=== PATIENT | male | born 1940 ===

== ENCOUNTER → 2018-04-18 10:58 | Outpatient (CLI) | payer MEDICARE, SELFPAY ==
[2018-04-18 12:19] LABS: Add Manual Diff / Slide Review NO; Basophils Percent Auto 0.7 % (0-2); Eosinophils Percent Auto 3.9 % (2-4); Hematocrit 44.3 % (41-53); Lymphocytes Percent Auto 23.8 % (25-40); Mean Corpuscular HGB Conc 33.8 % (30-36); Mean Corpuscular Hemoglobin 31.2 PG (26-34); Mean Corpuscular Volume 92.4 fL (80-100); Monocytes Percent Auto 10.7 % (3-14); Neutrophils Absolute Auto 4800 /uL (3000-5900); Neutrophils Percent Auto 60.9 % (50-75); Platelet Count 235 X10^3/uL (150-400); Red Blood Cell Count 4.79 X10^6/uL (4.5-5.9); Red Cell Distribution Width 13.4 % (11.6-14.8); White Blood Cell Count 7.8 X10^3/uL (4.5-11.0)
[2018-04-18 12:52] LABS: HEMOLYSIS < 15 (0-50); Potassium 4.6 mmol/L (3.4-5.1); Sodium 143 mmol/L (137-145)
== END ==
PROVIDERS: PCP Family Medicine; Visit Provider Orthopaedic Surgery
DX: M16.12 Unilateral primary osteoarthritis, left hip (principal); Z01.818 Encounter for other preprocedural examination; Z01.812 Encounter for preprocedural laboratory examination
CPT/HCPCS: 36415; 80051; 85025; 93005

== ENCOUNTER 2018-05-01 09:38 | Inpatient (IN) | payer MEDICARE, SELFPAY ==
[2018-04-10 11:01] VITALS: BMI 25.7
[2018-05-01] VITALS (16 sets, daily range): BP systolic 113–161; BP diastolic 57–98; PULSE 74–100; RESP 14–22; TEMP 36.3–37.4; O2SAT 92–98; BMI 25.7
--- NOTE | 2018-05-01 | DI.RAD.S_ITS ---
PROCEDURE: XR HIP LT 1V INDICATIONS: 77 year-old male with left hip joint replacement. TECHNIQUE: One view of the lower pelvis acquired. COMPARISON: [facility] [place], XR PELVIS WITH LATERAL HIP LEFT, 03/15/2018, 11:37. FINDINGS: Bones: Patient is status post noncemented left hip arthroplasty, with hardware components in expected positions. The hip joint appears congruent. The visualized bony structures appear intact. Soft tissues: Overlying postoperative changes are noted, including skin darwin. No suspicious soft tissue densities. IMPRESSION: Status post left hip arthroplasty, with hardware components in expected positions. Dictated by: Michael Manrique M.D. on 05/01/2018 at 15:09 Approved by: Michael Manrique M.D. on 05/01/2018 at 15:11
[2018-05-01 10:20] LABS: INR 1.1 (0.9-1.3); Prothrombin Time 11.6 SECONDS (10.1-12.7)
[2018-05-01] MEDS: LACTATED RINGERS 1,000 ML 42 ML IV ×2 (11:55→13:57)
--- NOTE | 2018-05-01 11:59 | PM.PREOP ---
Pre-operative Note Interval Note Pre-op Check: History & Physical Reviewed by Physician and Changes
[2018-05-01] MEDS: CEFAZOLIN 2 GM/100 ML FROZ.PIGGY IV ×2 (12:30→22:25)
--- NOTE | 2018-05-01 12:42 | SUR.OPER ---
Lateral on padded OR bed. Gel axillary roll. Arms secured on padded armboard with pillow supporting top arm. Padded hip positioner braces x4 - anterior and posterior chest and pelvis. Additional gel pad used anterior pelvis. Gel pad under bottom leg from knee to foot and secured with tape over sheet.
--- NOTE | 2018-05-01 14:51 | PM.OP.1 ---
Operative Date/Time/Diagnoses - Date of procedure: 05/01/18 Time of procedure: 14:51 Pre-op diagnosis: Left hip degenerative joint disease Post-op diagnosis: same Procedure & Clinicians Procedure: Left total hip arthroplasty (CPT code 76197 with assistant clinical director) Same procedure as scheduled: Yes Indications: Patient is an 77-year-old male with severe left hip DJD. The patient has pain with activities and at rest, limited ambulation and activity tolerance, difficulties with ADLs, and failure of conservative treatment. We have discussed the nature of condition, treatment options, risks and benefits, and patient elects to proceed with total hip arthroplasty and gives informed consent. Surgeon: Javan Medeiros Nurse First Aid: Angie Lloyd Anesthesia Type: General and Spinal Operative Notes Closure Type: primary Implants & Drains: Acetabulum: Watts [employer]hew R3 acetabular component size 54 mm Femoral component: Watts [employer] Nephew Synergy stem size 14 with standard offset Femoral head: 36 mm + +8 cobalt chrome Estimated Blood Loss (mL): 100 Procedure in detail: After satisfaction induction of anesthetic, and administration of IV antibiotics, the patient was positioned in the lateral decubitus position with all bony prominences well padded and pelvic position secured using a hip internal security manager positioning device. Left hip and lower extremity prepped and draped in the usual sterile fashion, 1st dose of intravenous tranexamic acid was administered, then a longitudinal incision was created centered over the greater trochanter and carried sharply through the skin and subcutaneous tissues down to the fascia douglas which was divided longitudinally and retracted with a Charnley retractor. External rotators visualize, cut, tagged, and retracted posteriorly, then the capsule was cut in a T-type fashion with the corners tagged and retracted. Hip was dislocated and femoral neck cut made according to preoperative templating. Acetabular retractors then placed, and the acetabular labrum and osteophytes were excised. The acetabulum was then sequentially reamed to 53 mm with an excellent circumferential ream and fit with the trial. The trial component was removed and a permanent size 54 mm Watts [employer] Nephew R3 acetabular component was selected, positioned, and impacted with satisfactory position and fixation achieved. Permanent liner was then inserted with the elevated lip directed posteriorly. Soft tissue then removed off the lateral femoral neck in the lateral neck was entered using a box osteotome. T-handled reamers placed down the canal followed by sequential broaching to 14 with the final broach left in place for trial reduction which demonstrated excellent leg length, range of motion, and stability characteristics with a 36 mm +0 trial ball. The trial and broach were removed, and a permanent size 14 Watts [employer] Nephew Synergy stem was selected and inserted with excellent position and fixation achieved. Another trial reduction yielded the above characteristics, however, the leg felt somewhat shorter than expected and therefore a trial reduction was also performed with a +4 and a +8 ball. Excellent leg length and markedly improved stability were achieved with a +8 trial ball, so the trial ball was exchanged for a permanent 36 mm + 8 cobalt chrome ball. The hip was irrigated and reduced and excellent leg length range of motion and stability characteristics were achieved and maintained. Periarticular tissues were infiltrated with Exparel. The hip was copiously irrigated, and the capsule repaired with #2 Ethibond, and the piriformis was repaired back to the greater trochanter with the same. Fascia douglas closed with interrupted #1 Ethibond sutures, and the subcutaneous tissues were closed in 2 layers of 0 Vicryl and 2 0 Vicryl. Skin was closed with darwin and sterile dressings applied. Second dose of tranexamic acid was administered intravenously, and the anesthetic was terminated. Complications: none Condition: stable Disposition: PACU Plan for aftercare: Patient will be admitted to the acute care ramos, and anticipate discharge on postop day 1 or 2 with follow-up in office in 10-14 days. Outpatient physical therapy will be arranged and patient will continue to observe posterior hip precautions. Patient will continue use of postoperative Lovenox for 10 days postop.
--- NOTE | 2018-05-01 14:59 | P.OP_ITS ---
Operative Date/Time/Diagnoses - Date of procedure: 05/01/18 Time of procedure: 14:51 Pre-op diagnosis: Left hip degenerative joint disease Post-op diagnosis: same Procedure & Clinicians Procedure: Left total hip arthroplasty (CPT code 34778 with farm assistant) Same procedure as scheduled: Yes Indications: Patient is an 77-year-old male with severe left hip DJD. The patient has pain with activities and at rest, limited ambulation and activity tolerance, difficulties with ADLs, and failure of conservative treatment. We have discussed the nature of condition, treatment options, risks and benefits, and patient elects to proceed with total hip arthroplasty and gives informed consent. Surgeon: Javan Medeiros [facility] Administrator: Angie Lloyd Anesthesia Type: General and Spinal Operative Notes Closure Type: primary Implants & Drains: Acetabulum: Watts and Nephew R3 acetabular component size 54 mm Femoral component: Watts [employer] Nephew Synergy stem size 14 with standard offset Femoral head: 36 mm + +8 cobalt chrome Estimated Blood Loss (mL): 100 Procedure in detail: After satisfaction induction of anesthetic, and administration of IV antibiotics, the patient was positioned in the lateral decubitus position with all bony prominences well padded and pelvic position secured using a hip emergency vehicle operations instructor positioning device. Left hip and lower extremity prepped and draped in the usual sterile fashion, 1st dose of intravenous tranexamic acid was administered, then a longitudinal incision was created centered over the greater trochanter and carried sharply through the skin and subcutaneous tissues down to the fascia douglas which was divided longitudinally and retracted with a Charnley retractor. External rotators visualize, cut, tagged, and retracted posteriorly, then the capsule was cut in a T-type fashion with the corners tagged and retracted. Hip was dislocated and femoral neck cut made according to preoperative templating. Acetabular retractors then placed, and the acetabular labrum and osteophytes were excised. The acetabulum was then sequentially reamed to 53 mm with an excellent circumferential ream and fit with the trial. The trial component was removed and a permanent size 54 mm Watts and Nephew R3 acetabular component was selected, positioned, and impacted with satisfactory position and fixation achieved. Permanent liner was then inserted with the elevated lip directed posteriorly. Soft tissue then removed off the lateral femoral neck in the lateral neck was entered using a box osteotome. T-handled reamers placed down the canal followed by sequential broaching to 14 with the final broach left in place for trial reduction which demonstrated excellent leg length, range of motion, and stability characteristics with a 36 mm +0 trial ball. The trial and broach were removed, and a permanent size 14 Watts and Nephew Synergy stem was selected and inserted with excellent position and fixation achieved. Another trial reduction yielded the above characteristics, however, the leg felt somewhat shorter than expected and therefore a trial reduction was also performed with a +4 and a +8 ball. Excellent leg length and markedly improved stability were achieved with a +8 trial ball, so the trial ball was exchanged for a permanent 36 mm + 8 cobalt chrome ball. The hip was irrigated and reduced and excellent leg length range of motion and stability characteristics were achieved and maintained. Periarticular tissues were infiltrated with Exparel. The hip was copiously irrigated, and the capsule repaired with #2 Ethibond, and the piriformis was repaired back to the greater trochanter with the same. Fascia douglas closed with interrupted #1 Ethibond sutures, and the subcutaneous tissues were closed in 2 layers of 0 Vicryl and 2 0 Vicryl. Skin was closed with darwin and sterile dressings applied. Second dose of tranexamic acid was administered intravenously , and the anesthetic was terminated. Complications: none Condition: stable Disposition: PACU Plan for aftercare: Patient will be admitted to the acute care ramos, and anticipate discharge on postop day 1 or 2 with follow-up in office in 10-14 days. Outpatient physical therapy will be arranged and patient will continue to observe posterior hip precautions. Patient will continue use of postoperative Lovenox for 10 days postop.
--- NOTE | 2018-05-01 15:15 | SUR.PHASEI ---
Report called to BRENT Lindsey
--- NOTE | 2018-05-01 15:43 | SUR.PHASEI ---
Report to BRENT Davis. Vital signs stable. drsg checked with RN. Belongings bag with pt. Iv saline locked.
[2018-05-01] MEDS: LACTATED RINGERS 1,000 ML 100 ML IV (16:45)
[2018-05-01] MEDS: WARFARIN 2.5 MG TABLET PO (17:59)
[2018-05-01] MEDS: ONDANSETRON 4 MG/2 ML INJ IV (18:00)
[2018-05-01] MEDS: HYDROCODONE/ACET 5/325 TABLET 1 TAB PO ×2 (18:00→23:45)
[2018-05-01] MEDS: ATENOLOL 50 MG TABLET 100 MG PO (18:02)
[2018-05-01] MEDS: DOCUSATE 100 MG CAPSULE PO (18:04)
[2018-05-01] MEDS: LOSARTAN 50 MG TABLET PO (18:05)
--- NOTE | 2018-05-02 00:47 | PC.NURSE ---
Addendum entered by Madison Mahoney R.N. 05/02/18 06:17: Slept at intervals. Did receive Vicoding again at 0408 and this morning states his pain is only 1/10. Since being cathed earlier this shift, he has voided x2; first void was 75cc and just now had 125cc void. SCD's removed for 1 hour as per protocol. Original Note: Patient is alert and oriented. Breath sounds CTA with RA sat of 97%. HRR. Denies nausea. BT hypoactive but states he has been passing flatus. Has been unable to void except for small amounts post-op so after being up to BSC to try again, he was agreeable to having in/out cath performed; 350cc dark komal urine returned and patient tolerated procedure well. Dressing to left hip intact with shadow drainage noted posteriorly. Complained of 4/10 pain and was medicated with Vicodin and ice applied to hip. CMS intact. Wearing bilateral SCD's. Able to turn self in bed and transfers to BSC/bathroom with 1 assist and walker. Fall risk score is high and bed alarm is activated.
[2018-05-02] MEDS: LACTATED RINGERS 1,000 ML 100 ML IV (03:13)
[2018-05-02] MEDS: HYDROCODONE/ACET 5/325 TABLET 1 TAB PO ×3 (04:08→12:57)
[2018-05-02 04:37] VITALS: BP 123/69; PULSE 84; RESP 19; TEMP 37.2; O2SAT 95
[2018-05-02] MEDS: DOCUSATE 100 MG CAPSULE PO (05:43)
[2018-05-02] MEDS: CEFAZOLIN 2 GM/100 ML FROZ.PIGGY IV (05:44)
[2018-05-02 05:50] LABS: Hematocrit 34.8 % (41-53); Hemoglobin 11.8 g/dL (13.5-17.5)
[2018-05-02 08:57] VITALS: BP 98/51; PULSE 81; RESP 16; O2SAT 95
[2018-05-02] MEDS: FISH OIL 1,000 MG CAPSULE 1000 MG PO (09:09)
[2018-05-02] MEDS: ENOXAPARIN 40 MG/0.4 ML SYRINGE SUBCUT (09:09)
[2018-05-02 12:00] VITALS: BP 96/51; PULSE 69; RESP 16; TEMP 36.9; O2SAT 91
--- NOTE | 2018-05-02 12:28 | PT.IIE ---
Current Diagnoses Unilateral primary osteoarthritis, left hip (05/01/18) Surgery Performed Operation Date: 05/01/18 11:45 Actual Procedures p Total Hip Arthroplasty(Left) - Javan Medeiros MD Surgical History (Last Updated 04/10/18 @ 13:36 by Chyna Chavira, RN) H/O hemorrhoidectomy (Acute) History of cataract surgery (Acute) History of tonsillectomy and adenoidectomy (Acute) Hx of colonoscopy (Acute) Medical History (Last Updated 04/10/18 @ 13:36 by Chyna Chavira, RN) Arthritis (Acute) Basal cell carcinoma (Acute) Bruises easily (Acute) CVA (cerebral vascular accident) (Acute) Cervical fusion syndrome (Acute) Colon polyps (Acute) DDD (degenerative disc disease) (Acute) GERD (gastroesophageal reflux disease) (Acute) H/O anxiety disorder (Acute) HTN (hypertension) (Acute) Hearing loss (Acute) Hyperlipidemia (Acute) Left hip pain (Acute) Low back pain (Acute) Osteoarthritis, hip, bilateral (Acute) Paroxysmal A-fib (Acute) Squamous cell carcinoma (Acute) Physical Therapy Inpatient Evaluation/Re-Eval M1 PT/OT-IP Prior Functional Status Start: 05/02/18 12:21 Freq: NEEDED Status: Active Protocol: Document 05/02/18 12:21 AB (Rec: 05/02/18 12:28 AB [id number]) Medical Review Prior Functional Status Medical History Reviewed Yes Mobility and Gait pt stated that he is independent with all mobilities and ambulation without AD Social History Household Members spouse Living Arrangements House Number of Floors (Floors) One Floor Number of Stairs To Enter/Railing? 1 small step to enter Home Environment Walk in Shower Built-In Shower Seat Home Equipment Four Wheel Walker Raised Toilet Seat Without Armrests Grab Bars In Shower Employment Status Retired M2 PT-IP Current Condition Start: 05/02/18 12:21 Freq: NEEDED Status: Active Protocol: Document 05/02/18 12:21 AB (Rec: 05/02/18 12:28 AB [id number]) Physical Therapy Current Condition Current Condition Evaluation Date 05/02/18 Treatment Diagnosis s/p L WATSON Onset Date 05/01/18 Precautions Posterior Hip Precautions No Hip Flexion > 90 degrees No Hip Internal Rotation No Hip Adduction Weight Bearing Status Weight Bearing Status Weight Bear as Tolerated M3 PT-IP Subjective Start: 05/02/18 12:21 Freq: NEEDED Status: Active Protocol: Document 05/02/18 12:21 AB (Rec: 05/02/18 12:28 AB [id number]) Subjective Physical Therapy Visit Type Type Initial Evaluation Visit Start Time 09:23 Visit Stop Time 10:00 Total Visit Minutes 37 Number of PATTERN FILER Visits 0 Physical Therapy Visit Comments Patient Comments pt agreeable to do therapy Therapy Pain Assessment Pain When Pain Assessed At Rest Pain Present Pain Present Pain Reported Location Left Hip Intensity 6 Scale Used Numeric (1 - 10) Pain Management Techniques Apply Cold Re-positioning Timing of Activity with Medications M4 PT-IP Mobility and Gait Start: 05/02/18 12:21 Freq: NEEDED Status: Active Protocol: Document 05/02/18 12:21 AB (Rec: 05/02/18 12:28 AB [id number]) PT-Bed Mobility Assessment Supine to Sit Supine to Sit Standby Assistance Sit to Supine Sit to Supine Standby Assistance PT-Transfer Assessment Sit to and From Stand Sit to and from Stand Standby Assistance Equipment Transfer Assistive Device Gait Belt Front Wheeled Walker Gait Assessment Gait Gait Assistance Required: Standby Assistance Distance (Feet) (feet) 100 Able to Maintain Weight Bearing Status Yes During Gait Assistive Devices Assistive Device Gait Belt Front Wheeled Walker Orthotic/Prosthetic Devices or Brace: No Gait Deviations General Gait Pattern Antalgic Decreased Stride Length Decreased Feet Clearance Step-to Gait Factors Limiting Gait Function Factors Limiting Gait Function Decreased Activity Tolerance Decreased Strength Pain Poor Balance Stair Climbing Assessment Evaluation Level of Assist On Stairs Contact Guard Assistance Devices Stair Climbing Assistive Devices Front Wheel Walker Technique/Endurance Stair Climbing Direction Ascend and Descend Stair Climbing Technique Step to Step Number of Steps Climbed 1 Query Text: Stair Climbing Set # Repetitions (reps) 2 PT-Balance Assessment Sitting Balance and Reactions Static Sitting Balance Ability Good Dynamic Sitting Balance Ability Good Standing Balance and Reactions Static Standing Balance Ability Fair Dynamic Standing Balance Ability Fair Device Used FWW M5 PT-IP Objective Assessments Start: 05/02/18 12:21 Freq: NEEDED Status: Active Protocol: Document 05/02/18 12:21 AB (Rec: 05/02/18 12:28 AB [id number]) Orientation Orientation/Cognition Level of Alertness Alert Orientation Name Age Birthday Month Year Place Situation Strength Lower Extremity Strength Assessment Left Impaired Comments Strength Comments LLE 4-/5 M6 PT-IP Treatment Start: 05/02/18 12:21 Freq: NEEDED Status: Active Protocol: Document 05/02/18 12:21 AB (Rec: 05/02/18 12:28 AB [id number]) Physical Therapy Treatment Education Education Provided Precautions Weight Bearing Status Post-Op Packet Safety M7 PT-IP Assessment and Plan Start: 05/02/18 12:21 Freq: NEEDED Status: Active Protocol: Document 05/02/18 12:21 AB (Rec: 05/02/18 12:28 AB [id number]) PT Summary Assessment and Plan Potential Rehabilitation Potential Good Status of Condition at Evaluation Evolving Summary Impairments Pain Strength Balance Bed Mobility Transfers Gait Activity Tolerance Assessment Summary pt requires SBA for mobility and will have spouse to assist him at home. pt stated that he is set up for outpt therapy . Goals Bed Mobility Goal Independent Transfer Goal Independent Gait Goal Independent Gait Distance 150 Days to Meet Goals 2 Frequency of Treatment Frequency Of Treatment Twice a Day Treatment Plan Physical Therapy Treatment Plan Bed Mobility Training Transfer Training Gait Training Therapeutic Exercise Balance Retraining Post Op Education Discharge Planning Hot or Cold Pack Neuromuscular Re-ed Coordination Retraining Manual Therapy Other Recommendations and Next Treatment ambulation, stair climbing Focus Recommendations To Nursing Amount of Assist Needed Standby Assistance Discharge Recommendations PT Discharge Recommendations Home with Assistance Outpatient PT Provider Visit Care Team Role Provider Type Inocente Merrill MD Primary Care Provider Non-Staff Specialty: Medical Javan Medeiros MD Admit Provider Physician Attending Provider Specialty: Orthopedic Surgery
--- NOTE | 2018-05-02 13:16 | CM.DANOTE ---
Addendum entered by Jennifer Louie LPN 05/02/18 13:45: Met with pt and his as planned. Both confirm that he has done very well today, will see the therapist this afternoon again and then if does well will go home. RADHA Brooke was just in room and confirms same. Pt has PT set with [facility] in [place]. He has a fww at home that he will use post op. P: home likely later today Original Note: Case received, EMR reviewed and discussed case in Interdisc rounds this morning. Pt is a 77 year old male who admitted yesterday for a planned L WATSON. Surgeon: Dr. Medeiros OT and PT are ordered. PT was to see pt for the first time today. Initial PT eval is noted and with recommendation thus far by PT Hazel that pt should do well going home with his 's supportive care and outpt PT. Will check in with pt and continue the assessment process.
--- NOTE | 2018-05-02 13:32 | P.DS_ITS ---
History of Present Illness Date Patient Seen: 05/02/18 Time Patient Seen: 13:29 Chief complaint: left total hip arthroplasty Narrative: Dayday is status post left total hip arthroplasty with Dr. Medeiros Discharge Providers Date of admission: 05/01/18 09:38 Primary care physician: Inocente Merrill MD Consults: 05/01/18 15:58 Consult to Discharge Planning Routine Comment: Consult to Physical Therapy Evaluate & Treat Comment: Physician Instructions: post op WATSON protocol 05/02/18 09:06 Consult to Occupational Therapy Evaluate & Treat Comment: Physician Instructions: Evaluate and treat Discharge provider: Angie Lloyd PA-C Summary Discharge Diagnosis: Status post left total hip arthroplasty Hospital Course: Dayday was admitted for left total hip arthroplasty and he consented to procedure. Hospital course unremarkable. On postop day 1. He is feeling well and wanted to go home. He was eating and voiding without difficulty or assistance. His pain was adequately controlled with Vicodin. He will be on Lovenox for DVT prophylaxis. Has worked with physical therapy. On day of discharge dressing with CDI, and calves were soft, compressible, and nontender bilaterally. Status at Discharge Functional status at discharge: uses cane/walker Time Spent with Patient Less than 30 minutes Exam Vital Signs (past 8 hours): Vital Signs - 8 hr 3 05/02/18 08:57 05/02/18 12:00 Temperature 98.4 F Pulse Rate 81 69 Respiratory Rate 16 16 Blood Pressure 98/51 L 96/51 L Pulse Oximetry 95 91 Pulse Oximetry 91 Oxygen Delivery Method Room Air Oxygen Flow Rate 0 Narrative Exam Narrative: Patient is sitting at bedside chair no acute distress. He is alert and oriented x3. Dressing on left hip is CDI. Calves are soft, compressible, nontender bilaterally. He is able to actively dorsiflex and plantar flex. Sensation intact light touch throughout bilateral lower extremities. Pain is adequately controlled Vicodin. No nausea, vomiting or chest pain. Objective Labs Result Diagrams: 05/02/18 05:12 Labs: Laboratory Results - last 24 hr 05/02/18 05:12 Hgb 11.8 L Hct 34.8 L Discharge Plan Discharge Plan Patient Disposition: Home, Self-Care Discharge comment: DC home today with Discharge Med Rec/Prescriptions Prescriptions: New enoxaparin [Lovenox] 40 mg/0.4 mL Syringe 40 mg Sub-Q DAILY 6 Days RF: 0 Continue atenolol 100 MG tablet 100 mg PO BID Qty: 0 RF: 0 losartan 50 MG tablet 50 mg PO QDAY Qty: 0 RF: 0 lovastatin 10 MG tablet 10 mg PO QDAY Qty: 0 RF: 0 ranitidine HCl 150 MG tablet 150 mg PO BID Qty: 0 RF: 0 warfarin [Coumadin] 5 MG tablet 5 mg PO DIRECTED Qty: 0 RF: 0 warfarin 2.5 mg Tablet 2.5 mg PO DIRECTED RF: 0 hydrocodone-acetaminophen 5-325 mg Tablet 1 - 2 tab PO Q6H PRN (Reason: pain) RF: 0 [place]-3 Fish Oil 750 mg PO QDAY RF: 0 sennosides-docusate sodium [Senna Laxative-Stool Softener] 8.6-50 mg Tablet 1 tab PO QDAY PRN (Reason: Constipation) RF: 0 Follow up/Referrals: Javan Medeiros MD [Physician] - (10-14 days with [facility]) Provider Discharge Instructions Diet: Diet as Tolerated Activity: Posterior hip precautions Cold/Heat Therapy: As needed Wound Care Report to your healthcare provider any signs of infection, such as:: chills, fever and increased pain Visit Report/Discharge Packet Instructions: DI for Hip Replacement Discharge Data Primary Care Provider: Inocente Merrill Attending Provider: Javan Medeiros Admit Date/Time: 05/01/18 09:38 Quality VTE Deep Vein Thrombosis/Pulmonary Embolism Present on Admission: No
--- NOTE | 2018-05-02 15:34 | PC.NURSE ---
LOVENOX KIT GIVEN AT D/C. PT ESCORTED OUT VIA W/C WITH ALL PERSONAL BELONGINGS. PT LEFT IN STABLE CONDITION.
--- NOTE | 2018-05-02 15:54 | OT.IP.EVAL ---
Current Diagnoses Unilateral primary osteoarthritis, left hip (05/01/18) Surgery Performed Operation Date: 05/01/18 11:45 Actual Procedures p Total Hip Arthroplasty(Left) - Javan Medeiros MD Past Medical History (Last Updated 04/10/18 @ 13:36 by Chyna Chavira, RN) Arthritis (Acute) Basal cell carcinoma (Acute) Bruises easily (Acute) CVA (cerebral vascular accident) (Acute) Cervical fusion syndrome (Acute) Colon polyps (Acute) DDD (degenerative disc disease) (Acute) GERD (gastroesophageal reflux disease) (Acute) H/O anxiety disorder (Acute) HTN (hypertension) (Acute) Hearing loss (Acute) Hyperlipidemia (Acute) Left hip pain (Acute) Low back pain (Acute) Osteoarthritis, hip, bilateral (Acute) Paroxysmal A-fib (Acute) Squamous cell carcinoma (Acute) Surgical History (Last Updated 04/10/18 @ 13:36 by Chyna Chavira, RN) H/O hemorrhoidectomy (Acute) History of cataract surgery (Acute) History of tonsillectomy and adenoidectomy (Acute) Hx of colonoscopy (Acute) Occupational Therapy Inpatient Evaluation/Re-Eval M1 PT/OT-IP Prior Functional Status Start: 05/02/18 15:31 Freq: NEEDED Status: Active Protocol: Document 05/02/18 15:31 PJM (Rec: 05/02/18 15:47 PJM [id number]) Medical Review Prior Functional Status Medical History Reviewed Yes Diet/Fluid Consistency Regular Communication WNL Mobility and Gait pt stated that he is independent with all mobilities and ambulation without AD Activities of Daily Living and IADL's Pt states he was independent with all self care, driving. 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 Social History Household Members spouse Living Arrangements House Number of Floors (Floors) One Floor Number of Stairs To Enter/Railing? 1 Home Environment High Toilet Walk in Shower Built-In Shower Seat Home Equipment Four Wheel Walker Raised Toilet Seat Without Armrests Grab Bars In Shower Employment Status Retired Additional Social History Comment Built in shower seat too low for pt use M2 OT-IP Current Condition Start: 05/02/18 15:31 Freq: Status: Active Protocol: Document 05/02/18 15:31 PJM (Rec: 05/02/18 15:47 PJM [id number]) Occupational Therapy Current Condition Current Condition Evaluation Date 05/02/18 Treatment Diagnosis decreased self care and functional mobility skills Diagnosis Onset Date 05/01/18 Post Operative Precautions Posterior Hip Precautions No Hip Flexion > 90 degrees No Hip Internal Rotation No Hip Adduction Weight Bearing Status Weight Bearing Status Weight Bear as Tolerated M3 OT- IP Subjective and Pain Start: 05/02/18 15:31 Freq: Status: Active Protocol: Document 05/02/18 15:31 PJM (Rec: 05/02/18 15:47 PJM [id number]) OT- Subjective Occupational Therapy Visit Type Type Initial Evaluation Visit Start Time 13:55 Visit Stop Time 15:00 Total Visit Minutes 65 Occupational Therapy Visit Comments Patient Comments I know I will sleep and eat better at home. Patient/Caregiver Goals to walk without pain OT Pain Assessment Pain When Pain Assessed During Mobility Pain Present Pain Present Pain Reported Location Left Hip Intensity 6 Scale Used Numeric (1 - 10) Description Aching Pain Behaviors Facial Grimacing Guarding Management Techniques Distraction Re-positioning Timing of Activity with Medications M4 OT- IP ADL's Start: 05/02/18 15:31 Freq: Status: Active Protocol: Document 05/02/18 15:31 PJM (Rec: 05/02/18 15:47 PJM [id number]) OT LBG-Wlht-Hmxppja General Evaluation Self-Feeding Ability Independent OT ADL-Grooming General Evaluation Grooming Ability Standby Assistance Comments OT Grooming Comments for balance when standing; will assist PRN OT ADL-Oral Care General Eval Oral Care Ability Independent OT ADL-Dressing General Eval Upper Body Dressing Ability Independent Lower Body Dressing Ability Minimal Assistance Assistive Devices Dressing Assistive Devices Long Handled Shoe Horn Band Singer Sock Aid Velcro Comments OT Dressing Comments Pt needs min assist with sandal strap. Provided fire prevention specialist , sock aid and long shoe horn at pt request. can assist PRN at home. OT ADL-Toileting General Evaluation Toileting Ability Independent OT ADL-Bathing General Evaluation Bathing Ability Minimal Assistance Areas Needing Assistance Wash/Dry Lower Extremities Devices Bathing Equipment Long Handled Sponge or [place] Grab Bars Comments OT Bathing Comments Long bath sponge provided at pt request. will assist PRN at home M5 OT- IP IADL's Start: 05/02/18 15:31 Freq: Status: Active Protocol: Document 05/02/18 15:31 PJM (Rec: 05/02/18 15:47 PJM [id number]) OT-Instrumental Activities of Daily Living Deficits IADL Deficits Identified Deficits Home Safety Awareness Awareness of Need for Assistance at Home Good Awareness Ability to Problem Solve Emergency Able to Problem Solve Situations Medication Management Medication Management Caregiver Provides Supervision Money Management Money Management No Deficits Identified Meal Preparation Meal Preparation Caregiver Provides Assist Outside Property Agent Outside Property Agent Caregiver Provides Assist Driving Driving Caregiver Provides Assist Driving Comments to drive pt to therapy sessions until pt able. M6 OT- IP Functional Cognition Start: 05/02/18 15:31 Freq: Status: Active Protocol: Document 05/02/18 15:31 PJ (Rec: 05/02/18 15:47 [facility] [id number]) Cognitive Factors Limiting Selfcare Function Cognitive Ability Level of Alertness Alert Patient Orientation Name Age Birthday Month Date Year Day of Week Place Situation Attention Span Ability Capable of Focused Attention Capable of Sustained Attention Ability to Follow Commands Able to Follow One Step Commands Cognitive Comments Cognitive Assessment Comments Pt needs occasional min cus to apply hip precautions during ADLs and sit to stand. can cue pt appropriately. OT- Vision and Hearing OT- Hearing Assessment OT- Hearing Assessment WFL M7 OT- IP Mobility and Balance Start: 05/02/18 15:31 Freq: Status: Active Protocol: Document 05/02/18 15:31 PJM (Rec: 05/02/18 15:47 [facility] [id number]) OT-Transfer Assessment Sit to and From Stand Sit to and from Stand Contact Guard Assistance Transfers Transfer Ability Contact Guard Assistance Technique Transfer Destination Car Chair Toilet Transfer Technique Stand Step Pivot Devices Transfer Assistive Devices Gait Belt Front Wheeled Walker Comments Mobility Comments Pt tends to lean back when first arising and heavy use of grab bar to arise from toilet . Pt has higher toilet at home an to obtain toilet safety frame or BSC over toilet to provide armrests as they have no grab bars near toilet at home. Provided education/demo re: car transfer technique and pt/ verbalize understanding. OT- Gait Assessment Gait Gait Assistance Required: Standby Assistance Distance (Feet) (feet) 15 Able to Maintain Weight Bearing Status Yes During Gait Assistive Devices Assistive Device Gait Belt Front Wheeled Walker Comments Gait Ability Comments Pt needs min cues for gait sequence; can cue pt appropriately. Pt walked to bathroom and back this session . OT- Balance Assessment Sitting Balance and Reactions Static Sitting Balance Ability Normal Standing Balance and Reactions Static Standing Balance Ability Good Dynamic Standing Balance Ability Fair Comments Other Balance Tests/Deviations/Treatment Pt tends to lean back when : first arising M8 OT- IP Objective Assessments Start: 05/02/18 15:31 Freq: Status: Active Protocol: Document 05/02/18 15:31 PJM (Rec: 05/02/18 15:47 PJ [id number]) OT Gross Range of Motion Upper Extremity Range of Motion Assessment Within Functional Limits OT Strength Upper Extremity Strength Assessment Within Functional Limits OT- Coordination Assessment Comments Coordination Comments WFL BUE OT-Muscle Tone Assessment Muscle Tone WNL Yes OT Sensation Assessment Comments Summary Comments BUE sensation WFL Edema Edema Absent M9 OT- IP Assessment and Plan Start: 05/02/18 15:31 Freq: Status: Active Protocol: Document 05/02/18 15:31 PJM (Rec: 05/02/18 15:47 [facility] [id number]) OT Summary Assessment and Plan Potential Rehabilitation Potential Excellent Analytic Complexity at Evaluation Low Summary OT Impairments Pain Balance Functional Mobility Dressing Progress Towards Goals Safe For Discharge Assessment Summary Low complexity OT assessment and all OT education completed with pt/ re: posterior hip precautions, minimum seat heights, bed mobility, lower body dressing with adaptive equipment, toilet/shower/car transfer techniques, bathroom safety equipment options/ resources. Pt/ verbalize understanding of all education . Discharge Recommendations OT Discharge Recommendations Home with 24/7 Assist Home Equipment Needs to obtain toilet safety frame or BSC over toilet.
== END 2018-05-02 13:20 | disposition home or self-care (01) | DRG 470 ==
PROVIDERS: Physician Assistant Surgical; Admitting Provider Orthopaedic Surgery; PCP Family Medicine; Visit Provider Orthopaedic Surgery
PROC: 0SRB0JZ Replacement of Left Hip Joint with Synthetic Substitute, Open Approach (ICD-10-PCS; CPT 27130; principal; 2018-05-01 11:45)
DX: M16.12 Unilateral primary osteoarthritis, left hip (principal); Z86.73 Personal history of transient ischemic attack (TIA), and cerebral infarction without residual deficits; I10 Essential (primary) hypertension; M48.00 Spinal stenosis, site unspecified; Z87.891 Personal history of nicotine dependence; Z79.01 Long term (current) use of anticoagulants; I48.0 Paroxysmal atrial fibrillation
CPT/HCPCS: 36415; 73501; 85014; 85018; 85610; 97162; 97165; 97535; C1776; A9270; J0690; J1650; J2250; J2274; J2405; J2704; J3010

== ENCOUNTER → 2018-06-13 14:54 | Outpatient (CLI) | payer MEDICARE, SELFPAY ==
[2018-05-01 16:29] VITALS: BMI 25.7
[2018-06-13 16:34] LABS: Alanine Aminotransferase 21 IU/L (21-72)
[2018-06-13 16:59] LABS: Hepatitis B Surface Antigen NEGATIVE s/c (NEGATIVE)
[2018-06-13 17:20] LABS: HIV 1 and 2 Antibody NEGATIVE (NEGATIVE); Hep C Virus Ab w/Reflex Quant NEGATIVE s/c (NEGATIVE)
[2018-06-16 14:21] LABS: Hepatitis B Surf Ab Qualitativ Nonreactive (Nonreactive)
== END ==
PROVIDERS: PCP Family Medicine; Visit Provider Orthopaedic Surgery
DX: W46.1XXA Contact with contaminated hypodermic needle, initial encounter (principal)

== ENCOUNTER → 2019-05-25 10:25 | Outpatient (CLI) | payer MEDICARE, OTHER, SELFPAY ==
[2018-05-01 16:29] VITALS: BMI 25.7
--- NOTE | 2019-05-30 10:39 | PM.PFT.1 ---
Pulmonary Function Test Referral & Results Date Patient Seen: 05/25/19 Requesting provider: Inocente Merrill Results: The spirometry demonstrates an FVC of 3.87 L which is 101% of predicted. The FEV1 was measured at 2.81 L which is 103% of predicted. The FEV1/FVC ratio was 73 which is 100 of predicted. Following the administration of bronchodilator there was no appreciable change to above normal numbers. Lung volumes show an SVC of 4.02 L which is 95% of predicted. The diffusing capacity was measured at 23.82 which is 78% of predicted. No hemoglobin value was provided, so no correction for potential anemia could be made, if appropriate. The maximum voluntary ventilation was normal Interpretation: This study demonstrates normal spirometry There is minimal reduction in diffusing capacity suggesting some element of disease at the capillary alveolar level, although this could also be considered normal Clinical correlation suggested
== END ==
PROVIDERS: PCP Family Medicine; Visit Provider Family Medicine
DX: R06.2 Wheezing (principal)
CPT/HCPCS: 94060; 94726; 94729

== ENCOUNTER → 2020-07-31 13:34 | Outpatient (CLI) | payer MEDICARE, OTHER, SELFPAY ==
[2018-05-01 16:29] VITALS: BMI 25.7
== END ==
PROVIDERS: PCP Family Medicine; Referring Provider Ophthalmology; Visit Provider Ophthalmology
DX: B00.52 Herpesviral keratitis (principal)
CPT/HCPCS: 87070; 87205; 87252